=== PATIENT | male | born 1935 ===

== ENCOUNTER 2016-05-30 14:27 | Inpatient (IN) | payer OTHER, MEDICAID ==
[2016-05-30 15:26] VITALS: BMI 27.8
[2016-05-30 16:26] VITALS: RESP 20
--- NOTE | 2016-05-30 16:56 | CP.PCM.HP ---
History of Present Illness - History of Present Illness History of Present Illness: CC: lumbar fracture HPI: 81 M past medical history of HTN and arthritis recently discharged after admission to status post an unwitnessed fall after slipping on ice and hitting his head wihtout LOC. Pt admitted to [facility], all imaging negative for head trauma. Found to have acute transverse process fractures, Neurosurgery was consulted, no surgical intervention at this time. Patient admitted to TCU for further rehab needs. CT lumbar spine: Acute Transverse process fractures left side only at the L1, L2 and L3. No significant/appreciable associated soft tissue injury. Adjacent paravertebral soft tissues within normal limits. CT Cervical Spine: Anterior osteophytosis at the C4-5, C5-6, and C6-7 levels. Posterior disc osteophyte complexes at the C5-6, C6-7, and C7-T1 levels. Additional multilevel posterior disc bulges are noted. CT Head: Chronic microvascular ischemic change. Question small chronic lacunar infarct in the medulla. Mild sinus mucosal disease. ROS PER HPI ALL OTHER SYSTEMS REVIEWED AND NEG BY ME PMD: Ralph Diamond PMHx: HTN, arthritis Meds: enalapril 5mg, celebrex 200mg PSHx: prostate resection, cholecystectomy FamHx: daughter with diabetes, denies family history CVA, [place] Social Hx: former smoker, quit 30 years ago, smoked 1ppd for 20 years; denies alcohol, drugs; lives with , daughter, son. baseline can ambulate without cane or walker, no difficulty walking. Present on Admission - Present on Admission Any Indicators Present on Admission: No Past Patient History - Past Medical History & Family History Past Medical History?: Yes - Past Social History Smoking Status: Never Smoked - CARDIAC Hx Hypertension: Yes - HEENT Hx Deafness: Yes (with hearing aids) - MUSCULOSKELETAL/RHEUMATOLOGICAL Hx Arthritis: Yes Hx Falls: Yes (fall at home) - GENITOURINARY/GYNECOLOGICAL Hx Genitourinary Disorders: Yes Other/Comment: prostate surgery, bladder surgery - PSYCHIATRIC Hx Substance Use: No - SURGICAL HISTORY Hx Surgeries: Yes Other/Comment: prostate/ bladder surgery - ANESTHESIA Hx Anesthesia: Yes Hx Anesthesia Reactions: No Hx Malignant Hyperthermia: No Meds Allergies/Adverse Reactions: Allergies Allergy/AdvReac Type Severity Reaction Status Date / Time No Known Allergies Allergy Verified 05/26/16 15:19 Physical Exam - Constitutional Appears: Non-toxic, No Acute Distress - Head Exam Head Exam: ATRAUMATIC, NORMOCEPHALIC - Eye Exam Eye Exam: EOMI, Normal appearance, PERRL Pupil Exam: NORMAL ACCOMODATION - ENT Exam ENT Exam: Mucous Membranes Moist, Normal Oropharynx - Neck Exam Neck exam: Positive for: Full Rom, Normal Inspection - Respiratory Exam Respiratory Exam: Clear to Auscultation Bilateral, NORMAL BREATHING PATTERN - Cardiovascular Exam Cardiovascular Exam: RRR, +S1, +S2. absent: Gallop, Rubs - GI/Abdominal Exam GI & Abdominal Exam: Normal Bowel Sounds, Soft. absent: Mass, Organomegaly, Tenderness - Extremities Exam Extremities exam: Positive for: normal capillary refill, pedal pulses present - Back Exam Back exam: absent: CVA tenderness (L), CVA tenderness (R) - Neurological Exam Neurological exam: Alert, Oriented x3 - Psychiatric Exam Psychiatric exam: Normal Affect, Normal Mood - Skin Skin Exam: Dry, Warm Results - Vital Signs Recent Vital Signs: Last Vital Signs Temp 97.7 F 05/30/16 16:25 Pulse 58 L 05/30/16 16:25 Resp 20 05/30/16 16:25 BP 133/69 05/30/16 16:25 Pulse Ox 96 05/30/16 16:25 Assessment & Plan - Assessment and Plan (Free Text) Plan: 81 M past medical history of HTN and arthritis recently discharged after admission to status post an unwitnessed fall after slipping on ice and hitting his head wihtout LOC. Pt admitted to [facility], all imaging negative for head trauma. Found to have acute transverse process fractures, Neurosurgery was consulted, no surgical intervention at this time. Patient admitted to TCU for further rehab needs. CT lumbar spine: Acute Transverse process fractures left side only at the L1, L2 and L3. No significant/appreciable associated soft tissue injury. Adjacent paravertebral soft tissues within normal limits. CT Cervical Spine: Anterior osteophytosis at the C4-5, C5-6, and C6-7 levels. Posterior disc osteophyte complexes at the C5-6, C6-7, and C7-T1 levels. Additional multilevel posterior disc bulges are noted. CT Head: Chronic microvascular ischemic change. Question small chronic lacunar infarct in the medulla. Mild sinus mucosal disease. s/p fall continue PT / OT gait training goals to improve strength and independence CT head neg for head trauma HTN continue Enalapril stable monitor DVT ppx lovenox.
[2016-05-30] MEDS: oxyCODONE 10 mg ER Tab (oxyCONTIN) PO SCH (20:29)
[2016-05-31 06:55] LABS: CHLORIDE 99 mmol/L (98-107); SODIUM 134 mmol/l (132-148)
[2016-05-31 06:58] LABS: BLOOD UREA NITROGEN 24 mg/dl (9-20); CARBON DIOXIDE 25 mmol/L (22-30); GFR AFRICAN-AMERICAN > 60; GLUCOSE,RANDOM 100 mg/dL (75-110)
[2016-05-31 06:59] LABS: CALCIUM 9.1 mg/dL (8.4-10.2)
[2016-05-31 07:00] LABS: HEMATOCRIT 43.4 % (35.0-51.0); MEAN CELL VOLUME 91.8 fl (80.0-94.0); MEAN CORPUSCULAR HGB CONC 33.8 g/dL (33.0-37.0); RED CELL DISTRIBUTION WIDTH 13.8 % (11.5-14.5); WHITE BLOOD COUNT 6.3 K/uL (4.8-10.8)
[2016-05-31 07:04] LABS: POTASSIUM 5.3 MMOL/L (3.6-5.0)
[2016-05-31] MEDS: oxyCODONE 10 mg ER Tab (oxyCONTIN) PO SCH ×2 (08:42→21:35)
[2016-05-31] MEDS: Lidocaine 5% Patch TD SCH (08:43)
[2016-05-31] MEDS: Enoxaparin 40 mg Syringe SC SCH (08:44)
--- NOTE | 2016-05-31 13:07 | RAD ---
HISTORY: Chest CXR as pte refuses PPD COMPARISON: No prior. FINDINGS: LUNGS: Examination limited due to oblique positioning. No consolidation. PLEURA: No significant pleural effusion identified, no pneumothorax apparent. CARDIOVASCULAR: Normal. OSSEOUS STRUCTURES: No significant abnormalities. VISUALIZED UPPER ABDOMEN: Normal. OTHER FINDINGS: None. IMPRESSION: No active disease.
--- NOTE | 2016-05-31 19:04 | CP.PCM.CON ---
History of Present Illness - History of Present Illness History of Present Illness: Dr Boothe PMR consultation on Kumar Sparks, born 1935, who has been admitted to [facility] for TCU rehabilitation following a fall on ice. This lead to a transverse spinous fracture. pain is controlled but in need for therapies prior to d/c home. This will be a short stay. He is very [place] T lumbar spine: Acute Transverse process fractures left side only at the L1, L2 and L3. No significant/appreciable associated soft tissue injury. Adjacent paravertebral soft tissues within normal limits. CT Cervical Spine: Anterior osteophytosis at the C4-5, C5-6, and C6-7 levels. Posterior disc osteophyte complexes at the C5-6, C6-7, and C7-T1 levels. Additional multilevel posterior disc bulges are noted. CT Head: Chronic microvascular ischemic change. Question small chronic lacunar infarct in the medulla. Mild sinus mucosal disease. Review of Systems - Constitutional Constitutional: absent: Anorexia, Chills - Cardiovascular Cardiovascular: absent: Chest Pain - Respiratory Respiratory: absent: Dyspnea, Hemoptysis - Gastrointestinal Gastrointestinal: absent: Constipation - Musculoskeletal Musculoskeletal: Back Pain - Integumentary Integumentary: absent: Bleeding Lesions Past Patient History - Past Medical History & Family History Past Medical History?: Yes - Past Social History Smoking Status: Never Smoked Alcohol: None Drugs: Denies Home Situation {Lives}: With Family - CARDIAC Hx Hypertension: Yes - HEENT Hx Deafness: Yes (with hearing aids) - MUSCULOSKELETAL/RHEUMATOLOGICAL Hx Arthritis: Yes Hx Falls: Yes (fall at home) - GENITOURINARY/GYNECOLOGICAL Hx Genitourinary Disorders: Yes Other/Comment: prostate surgery, bladder surgery - PSYCHIATRIC Hx Substance Use: No - SURGICAL HISTORY Hx Surgeries: Yes Other/Comment: prostate/ bladder surgery - ANESTHESIA Hx Anesthesia: Yes Hx Anesthesia Reactions: No Hx Malignant Hyperthermia: No Meds Allergies/Adverse Reactions: Allergies Allergy/AdvReac Type Severity Reaction Status Date / Time No Known Allergies Allergy Verified 05/26/16 15:19 - Medications Medications: Current Medications Docusate Sodium (Colace) 100 mg PO BID [facility] Last Admin: 05/31/16 17:06 Dose: 100 mg Enalapril Maleate (Vasotec) 5 mg PO DAILY [facility] Last Admin: 05/31/16 08:44 Dose: 5 mg Enoxaparin Sodium (Lovenox) 40 mg SC DAILY [facility] PRN Reason: Protocol Last Admin: 05/31/16 08:44 Dose: 40 mg Lidocaine (Lidoderm) 1 ea TD DAILY [facility] Last Admin: 05/31/16 08:43 Dose: 1 ea Oxycodone HCl (Oxycontin Extended Release Tab) 10 mg PO Q12 [facility] Stop: 06/02/16 21:01 Last Admin: 05/31/16 08:42 Dose: 10 mg Sennosides (Senokot Tab) 25.8 mg PO Stat [facility] Last Admin: 05/30/16 20:34 Dose: 25.8 mg Tramadol HCl (Ultram) 25 mg PO TID PRN PRN Reason: Pain, moderate (4-7) Last Admin: 05/31/16 17:09 Dose: 25 mg Physical Exam - Constitutional Appears: No Acute Distress, Agitated (when trying to discuss him staying here) - Head Exam Head Exam: ATRAUMATIC, NORMAL INSPECTION, NORMOCEPHALIC - Eye Exam Eye Exam: EOMI - ENT Exam ENT Exam: Mucous Membranes Moist - Respiratory Exam Respiratory Exam: NORMAL BREATHING PATTERN. absent: Chest Wall Tenderness - Cardiovascular Exam Cardiovascular Exam: REGULAR RHYTHM - GI/Abdominal Exam GI & Abdominal Exam: absent: Distended Results - Vital Signs Recent Vital Signs: Last Vital Signs Temp 98 F 05/31/16 16:31 Pulse 73 05/31/16 16:31 Resp 20 05/31/16 16:31 BP 126/80 05/31/16 16:31 Pulse Ox 98 05/31/16 16:31 - Labs Result Diagrams: 05/31/16 06:20 05/31/16 06:20 Labs: Laboratory Results - last 24 hr 05/31/16 06:20 WBC 6.3 RBC 4.73 Hgb 14.7 Hct 43.4 MCV 91.8 MCH 31.0 MCHC 33.8 RDW 13.8 Plt Count 223 Sodium 134 Potassium 5.3 H Chloride 99 Carbon Dioxide 25 Anion Gap 15 BUN 24 H Creatinine 0.9 Est GFR ( Amer) > 60 Est GFR (Non-Af Amer) > 60 Random Glucose 100 Calcium 9.1 Assessment & Plan - Assessment and Plan (Free Text) Assessment: spinal lumbar transverse process fractures, neuro intact PT/OT prior to d.c home now on oxycontin which will be d/c'd after the weekend and just have prn tramadol
[2016-06-01] MEDS: Enoxaparin 40 mg Syringe SC SCH (08:29)
[2016-06-01] MEDS: Lidocaine 5% Patch TD SCH (08:30)
[2016-06-01] MEDS: oxyCODONE 10 mg ER Tab (oxyCONTIN) PO SCH ×2 (08:34→20:48)
[2016-06-02] MEDS: Lidocaine 5% Patch TD SCH (09:16)
[2016-06-02] MEDS: oxyCODONE 10 mg ER Tab (oxyCONTIN) PO SCH ×2 (09:16→21:31)
[2016-06-02] MEDS: Enoxaparin 40 mg Syringe SC SCH (09:17)
[2016-06-03] MEDS: Lidocaine 5% Patch TD SCH (09:08)
[2016-06-03] MEDS: Enoxaparin 40 mg Syringe SC SCH (09:08)
[2016-06-03] MEDS: oxyCODONE 20 mg ER Tab (oxyCONTIN) PO SCH ×2 (12:42→21:27)
[2016-06-03] MEDS ORDERED: oxyCODONE 20 mg ER Tab (oxyCONTIN) PO SCH (21:00)
[2016-06-04] MEDS: Lidocaine 5% Patch TD SCH (08:50)
[2016-06-04] MEDS: oxyCODONE 20 mg ER Tab (oxyCONTIN) PO SCH ×2 (08:50→21:42)
[2016-06-04] MEDS: Enoxaparin 40 mg Syringe SC SCH (08:50)
[2016-06-05] MEDS: oxyCODONE 20 mg ER Tab (oxyCONTIN) PO SCH ×2 (08:42→21:13)
[2016-06-05] MEDS: Lidocaine 5% Patch TD SCH (08:43)
[2016-06-05] MEDS: Enoxaparin 40 mg Syringe SC SCH (08:43)
--- NOTE | 2016-06-05 16:16 | CP.PCM.PN ---
Subjective - Date & Time of Evaluation Date of Evaluation: 06/05/16 Time of Evaluation: 16:15 - Subjective Subjective: Patient seen and examined bedside.Feeling better. Pain is controlled.Participating well with PT. Hemodynamically stable, afebrile. No acute issues overnight. For Discharge in Am Hard on hearing despite hearing aids Objective - Vital Signs/Intake and Output Vital Signs (last 24 hours): Temp Pulse Resp BP Pulse Ox 97.7 F 64 20 126/66 96 06/05/16 08:34 06/05/16 08:34 06/05/16 08:34 06/05/16 08:34 06/05/16 08:34 - Medications Medications: Current Medications Docusate Sodium (Colace) 100 mg PO BID [facility] Last Admin: 06/05/16 08:43 Dose: 100 mg Enalapril Maleate (Vasotec) 5 mg PO DAILY [facility] Last Admin: 06/05/16 08:43 Dose: 5 mg Enoxaparin Sodium (Lovenox) 40 mg SC DAILY [facility] PRN Reason: Protocol Last Admin: 06/05/16 08:43 Dose: 40 mg Lactulose (Enulose) 20 gm PO BID PRN PRN Reason: Constipation Last Admin: 06/02/16 21:31 Dose: 20 gm Lidocaine (Lidoderm) 1 ea TD DAILY [facility] Last Admin: 06/05/16 08:43 Dose: 1 ea Oxycodone HCl (Oxycontin Extended Release Tab) 20 mg PO Q12 [facility] Last Admin: 06/05/16 08:42 Dose: 20 mg Tramadol HCl (Ultram) 25 mg PO TID PRN PRN Reason: Pain, moderate (4-7) Last Admin: 06/05/16 02:48 Dose: 25 mg - Labs Labs: 05/31/16 06:20 05/31/16 06:20 - Constitutional Appears: Non-toxic, No Acute Distress - Head Exam Head Exam: ATRAUMATIC, NORMAL INSPECTION, NORMOCEPHALIC - Eye Exam Eye Exam: EOMI, Normal appearance, PERRL Pupil Exam: NORMAL ACCOMODATION - ENT Exam ENT Exam: Mucous Membranes Moist, Normal Exam - Neck Exam Neck Exam: Full ROM, Normal Inspection - Respiratory Exam Respiratory Exam: Clear to Ausculation Bilateral. absent: Rales, Rhonchi, Wheezes - Cardiovascular Exam Cardiovascular Exam: REGULAR RHYTHM, RRR, +S1, +S2. absent: JVD - GI/Abdominal Exam GI & Abdominal Exam: Soft, Normal Bowel Sounds. absent: Distended, Guarding, Tenderness, Rebound - Rectal Exam Rectal Exam: Deferred - Extremities Exam Extremities Exam: Full ROM, Normal Capillary Refill, Normal Inspection. absent : Calf Tenderness, Pedal Edema - Back Exam Back Exam: NORMAL INSPECTION - Neurological Exam Neurological Exam: Alert, Awake, CN II-XII Intact, Oriented x3 - Psychiatric Exam Psychiatric exam: Normal Affect, Normal Mood - Skin Skin Exam: Dry, Intact, Normal Color, Warm Assessment and Plan - Assessment and Plan (Free Text) Assessment: 81 M past medical history of HTN and arthritis recently admitted to TCU for physical therapy after an unwitnessed fall after slipping on ice and hitting his head without LOC. Ct lumbar spine had shown transvers process fracture on left side at level L1, L2, l3 , Neurosurgery was consulted, no surgical intervention but Pt recommended 1.Ct lumbar spine left transvers process fracture after fall Pain is controlled with oxycodone , ultram and lidoderm patch participated well with PT For discharge in AM continue PT / OT gait training goals to improve strength and independence CT head neg for head trauma 2.HTN Controlled continue Enalapril 3. Hard on hearing despite hearing device Will need to follow up with ENt once discharged 4.DVT ppx lovenox.
[2016-06-06 07:58] VITALS: BP 134/73; PULSE 60; TEMP 97.7; O2SAT 96
[2016-06-06] MEDS: Lidocaine 5% Patch TD SCH (08:41)
[2016-06-06] MEDS: Enoxaparin 40 mg Syringe SC SCH (08:44)
[2016-06-06] MEDS: oxyCODONE 20 mg ER Tab (oxyCONTIN) PO SCH (08:46)
--- NOTE | 2016-06-06 14:13 | CP.PCM.DIS ---
Provider - Provider Date of Admission: 05/30/16 15:26 Attending physician: Lucille Diana DO Primary care physician: Ralph Diamond MD Consults: Dr Boothe Time Spent in preparation of Discharge (in minutes): 35 Diagnosis - Discharge Diagnosis (1) Fracture of transverse process of lumbar vertebra Status: Acute Comment: continue PT/OT as out patient (2) HTN (hypertension) Status: Acute Comment: BP stable. continue Enalapril Hospital Course - Lab Results Lab Results: Most Recent Lab Values WBC 6.3 K/uL (4.8-10.8) 05/31/16 06:20 RBC 4.73 Mil/uL (4.40-5.90) 05/31/16 06:20 Hgb 14.7 g/dL (12.0-18.0) 05/31/16 06:20 Hct 43.4 % (35.0-51.0) 05/31/16 06:20 MCV 91.8 fl (80.0-94.0) 05/31/16 06:20 MCH 31.0 pg (27.0-31.0) 05/31/16 06:20 MCHC 33.8 g/dL (33.0-37.0) 05/31/16 06:20 RDW 13.8 % (11.5-14.5) 05/31/16 06:20 Plt Count 223 K/uL (130-400) 05/31/16 06:20 Sodium 134 mmol/l (132-148) 05/31/16 06:20 Potassium 5.3 MMOL/L (3.6-5.0) H 05/31/16 06:20 Chloride 99 mmol/L (98-107) 05/31/16 06:20 Carbon Dioxide 25 mmol/L (22-30) 05/31/16 06:20 Anion Gap 15 (10-20) 05/31/16 06:20 BUN 24 mg/dl (9-20) H 05/31/16 06:20 Creatinine 0.9 mg/dL (0.8-1.5) 05/31/16 06:20 Est GFR ( Amer) > 60 05/31/16 06:20 Est GFR (Non-Af Amer) > 60 05/31/16 06:20 Random Glucose 100 mg/dL (75-110) 05/31/16 06:20 Calcium 9.1 mg/dL (8.4-10.2) 05/31/16 06:20 - Hospital Course Hospital Course: 81 yo male with history of arthritis and HTN admitted to TCU for PT after sustaining fracture of the left transverse processes of L1, L2 and L3. No surgical intervention was recommended. Discharge Exam - Head Exam Head Exam: ATRAUMATIC, NORMAL INSPECTION, NORMOCEPHALIC - Eye Exam Eye Exam: Normal appearance - ENT Exam ENT Exam: Mucous Membranes Moist - Respiratory Exam Respiratory Exam: absent: Wheezes, Respiratory Distress - Cardiovascular Exam Cardiovascular Exam: REGULAR RHYTHM, +S1, +S2 - GI/Abdominal Exam GI & Abdominal Exam: Soft. absent: Tenderness - Rectal Exam Rectal Exam: Deferred - Neurological Exam Neurological exam: Alert, Oriented x3 - Psychiatric Exam Psychiatric exam: Normal Affect - Skin Skin Exam: Dry, Intact Discharge Plan - Follow Up Plan Condition: GOOD Disposition: HOME/ ROUTINE Additional Instructions: continue PT, OT as outpatient
== END 2016-06-06 15:10 | disposition home or self-care (01) | DRG 561 ==
LOC: H.TCU 15:26
PROVIDERS: ADMIT Student in an Organized Health Care Education/Training Program; ATTEND Student in an Organized Health Care Education/Training Program
PROC: F08Z4ZZ Home Management Treatment (ICD-10-PCS; principal; 2016-05-30)
PROC: F07M0ZZ Range of Motion and Joint Mobility Treatment of Musculoskeletal System - Whole Body (ICD-10-PCS; 2016-05-30)
PROC: F07Z9ZZ Gait Training/Functional Ambulation Treatment (ICD-10-PCS; 2016-05-30)
PROC: F07L6ZZ Therapeutic Exercise Treatment of Musculoskeletal System - Lower Back / Lower Extremity (ICD-10-PCS; 2016-05-30)
DX: S32.019D Unspecified fracture of first lumbar vertebra, subsequent encounter for fracture with routine healing (principal); I10 Essential (primary) hypertension; W00.0XXD Fall on same level due to ice and snow, subsequent encounter; H91.90 Unspecified hearing loss, unspecified ear; S32.029D Unspecified fracture of second lumbar vertebra, subsequent encounter for fracture with routine healing; S32.039D Unspecified fracture of third lumbar vertebra, subsequent encounter for fracture with routine healing; M19.90 Unspecified osteoarthritis, unspecified site; Z87.891 Personal history of nicotine dependence